=== PATIENT | female | born 1945 | race Caucasian/White ===

== ENCOUNTER → 2017-09-15 08:12 | Outpatient (CLI) | payer MEDICARE, SELFPAY ==
--- NOTE | 2017-09-15 08:32 | RAD_ITS ---
STUDY: X-RAY CHEST REASON FOR EXAM: Female, 72 years old. Rheumatoid arthritis. Long-term drug use. TECHNIQUE: PA and lateral views of the chest. COMPARISON: None. FINDINGS: There is a small calcified granuloma in the lingula of the left upper lobe, and a second small granuloma in the posterior periphery of the basilar right lower lobe. The lungs are otherwise clear and expanded. There is no demonstrated pleural abnormality. Normal size heart. There is a 3.8 x 1.7 x 1.7 cm conglomerate of calcified right paratracheal lymph nodes at the level of the thoracic arch, as well as a small calcified lymph node in the aorticopulmonary window. Normal visualized pulmonary arteries. Normal visualized aortic arch and descending thoracic aorta. There are multilevel degenerative changes of the visualized thoracic spine, and an 8 degree levoscoliosis centered at T10. 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 There is no demonstrated abnormality of the visualized soft tissue structures of the upper abdomen. RAD/Chest PA and Lateral IMPRESSION: Findings of old calcified granulomatous disease. No acute cardiopulmonary pathology. Electronically Signed: Lukasz Doe MD at 11:26 EDT , Service support ,
[2017-09-23 03:07] LABS: QNTFERON TB Ag Minus Nil Value 0.01 IU/mL (.); QNTFERON TB Ag Value 0.05 IU/mL (.); QNTFERON TB Mitogen Value > 10.00 IU/mL (.); QNTFERON TB Nil Value 0.04 IU/mL (.)
[2017-09-23 13:21] LABS: QNTIFERON TB Gold Negative (Negative)
== END ==
PROVIDERS: Family Provider Family Medicine; PCP Family Medicine; Visit Provider Internal Medicine Rheumatology
DX: M05.79 Rheumatoid arthritis with rheumatoid factor of multiple sites without organ or systems involvement (principal); Z79.899 Other long term (current) drug therapy; R51 Headache
CPT/HCPCS: 36415; 71046; 86480